=== PATIENT | male | born 1960 | race African-American/Black ===

== ENCOUNTER 2018-03-12 16:54 | Emergency (ER) | payer OTHER ==
[~2018-03-12] VITALS: Ht 180.3 cm; Wt 99.8 kg
[~2018-03-12 16:54] MED LIST: ACCUNEB SO1.25 MG/1; KEFLEX500 MG PO; NORCO 5-325 TA1 EACH PO
[2018-03-12] MEDS ORDERED: BACTRIM DS TAB1 EACH PO (17:23)
[2018-03-12] MEDS ORDERED: CARDIZEM CD240 MG PO (17:24)
[2018-03-12] MEDS ORDERED: HYDROCHLOROTHIA25 M2 PO (17:24)
[2018-03-12] MEDS ORDERED: TYLENOL EXTRA500 MG PO (17:26)
[2018-03-12] MEDS ORDERED: BENADRYL25 MG PO (17:27)
[2018-03-12] MEDS ORDERED: IBUPROFEN 200200 M1 PO (17:27)
[2018-03-12] MEDS ORDERED: TYLENOL PM EX-1 EACH PO (17:28)
[2018-03-12] MEDS ORDERED: CLEOCIN HCL150 MG PO (18:47)
[2018-03-12] MEDS ORDERED: HYDROCODONE-AP1 EAC6 PO (18:47)
[2018-03-12 19:25] VITALS: BP 144/101
== END 2018-03-12 19:26 | disposition home or self-care (01) ==
LOC: ER 16:54
DX: L02.512 Cutaneous abscess of left hand (principal)